=== PATIENT | female | born 1975 | race Caucasian/White ===

== ENCOUNTER → 2016-12-24 | Outpatient (CLI) | payer BC ==
[2016-12-24 11:30] LABS: CH 29.5; CHCM 31.5; HCT 40.4 % (34.0-46.0); HDW 2.19; HGB 12.2 gm/dL (11.4-16.0); MCH 28.4 pg (25.0-35.0); MCHC 30.1 g/dL (31.0-37.0); MCV 94.3 fL (80.0-100.0); RBC 4.29 m/uL (3.80-5.40); RDW 14.4 % (11.5-15.5); WBC 6.4 k/uL (3.8-10.6)
[2016-12-24 11:41] LABS: ALT 25 U/L (9-52); AST 29 U/L (14-36); Alkaline Phosphatase 53 U/L (38-126); Anion Gap 9 mmol/L; Bilirubin, Delta 0.2 mg/dL (0.0-0.2); Blood Urea Nitrogen 12 mg/dL (7-17); Calcium 9.4 mg/dL (8.4-10.2); Carbon Dioxide 27 mmol/L (22-30); Chloride 104 mmol/L (98-107); Glucose 93 mg/dL (74-99); Non-African American GFR(MDRD) >60 (>60 ml/min/1.73 sqM); Sodium 140 mmol/L (137-145); Total Bilirubin 0.4 mg/dL (0.2-1.3); Total Protein 7.4 g/dL (6.3-8.2)
[2016-12-24 12:08] LABS: INR 1.1 (<1.2); Prothrombin Time 10.7 sec (9.0-12.0)
== END | disposition home or self-care (01) ==
LOC: LABWHC1 11:11
PROVIDERS: ATTEND Internal Medicine
DX: Q79.2 Exomphalos (principal); R18.8 Other ascites; R16.0 Hepatomegaly, not elsewhere classified
CPT/HCPCS: 36415; 80048; 80076; 85027; 85610

== ENCOUNTER → 2017-10-01 | Outpatient (CLI) | payer BC ==
--- NOTE | 2017-10-01 14:10 | MM ---
Reason for exam: screening (asymptomatic). Baseline mammogram. History: Implants in both breasts, 2013. Took hormonal contraceptives beginning at age 21. Physical Findings: Nurse did not find any significant physical abnormalities on exam. MG Screening Mammo Implant/CAD Bilateral CC and MLO view(s) were taken. The breast tissue is extremely dense which could obscure a lesion on mammography. Finding: There are typically benign punctate, diffuse/scattered calcifications in both breasts. Scattered calcifications with no suspicious groups. No suspicious abnormality in the left breast. Right medial middle depth asymmetry. These results were verbally communicated with the patient and result sheet given to the patient on 10/01/17. ASSESSMENT: Incomplete: need additional imaging evaluation, BI-RAD 0 RECOMMENDATION: Special view mammogram of the right breast. If lesion persists on supplemental views, image directed ultrasound is recommended. [facility] will attempt to contact patient to return for supplemental views and ultrasound if indicated.
--- NOTE | 2017-10-01 14:13 | MM ---
Reason for exam: additional evaluation requested from abnormal screening. History: Implants in both breasts, 2013. Took hormonal contraceptives beginning at age 21. Physical Findings: Breast exam preformed at baseline screening. MG 3D Work Up W/Cad W/Imp RT Spot compression CC and ML view(s) were taken of the right breast. The breast tissue is extremely dense which could obscure a lesion on mammography. Finding: There are typically benign diffuse/scattered calcifications bilaterally. Scattered calcifications with no suspicious groups. The previously seen medial middle depth right asymmetry resolves on spot compression and lateral view and appears of fibroglandular tissue. These results were verbally communicated with the patient and result sheet given to the patient on 10/01/17. ASSESSMENT: Benign, BI-RAD 2 RECOMMENDATION: Return to routine screening mammogram schedule for both breasts.
== END | disposition home or self-care (01) ==
LOC: RADMAMWWP 07:03
PROVIDERS: ATTEND Obstetrics & Gynecology Obstetrics
DX: Z12.31 Encounter for screening mammogram for malignant neoplasm of breast (principal); R92.8 Other abnormal and inconclusive findings on diagnostic imaging of breast
CPT/HCPCS: 77061; 77065; 77067

== ENCOUNTER → 2018-11-16 | Outpatient (CLI) | payer BC ==
--- NOTE | 2018-11-18 08:54 | MM ---
Reason for exam: screening (asymptomatic). Last mammogram was performed 1 year and 1 month ago. History: Implants in both breasts, 2013. Took hormonal contraceptives beginning at age 21. Physical Findings: A clinical breast exam by your physician is recommended on an annual basis and results should be correlated with mammographic findings. MG Screening Mammo Implant/CAD Bilateral CC, MLO, and ID view(s) were taken. Prior study comparison: October 01, 2017, right breast MG work up mamm w CAD RT. October 01, 2017, bilateral MG screening mammo implant/CAD. The breast tissue is heterogeneously dense. This may lower the sensitivity of mammography. Retropectoral silicone implants. Bilateral diffuse punctate calcifications. No significant changes when compared with prior studies. ASSESSMENT: Benign, BI-RAD 2 RECOMMENDATION: Routine screening mammogram of both breasts in 1 year.
== END | disposition home or self-care (01) ==
LOC: RADMAMWWP 15:52
PROVIDERS: ATTEND Obstetrics & Gynecology Obstetrics
DX: Z12.31 Encounter for screening mammogram for malignant neoplasm of breast (principal); Z98.82 Breast implant status
CPT/HCPCS: 77067

== ENCOUNTER → 2020-01-17 | Outpatient (CLI) | payer BC | END | disposition home or self-care (01) | LOC: LABWHC1 14:08 | PROVIDERS: ATTEND Family Medicine | DX: R79.1 Abnormal coagulation profile (principal) | CPT/HCPCS: 36415; 85379 ==

== ENCOUNTER → 2020-01-24 | Outpatient (CLI) | payer BC ==
--- NOTE | 2020-01-24 16:56 | US ---
EXAMINATION TYPE: US transvaginal DATE OF EXAM: 01/24/2020 COMPARISON: NONE CLINICAL HISTORY: N92.1 Excessive and frequent menstruation with irr. Patient states she has unexplained ascites and has for 7 years. TECHNIQUE: Transvaginal (TV). Patient unable to well fill bladder Date of LMP: Patient has been spotting for 3 weeks. She is on control pills. EXAM MEASUREMENTS: Uterus: 8.1 x 4.4 x 5.5 cm Endometrial Stripe: 0.3 cm Right Ovary: 2.0 x 1.3 x 1.3cm Left Ovary: 2.3 x 1.5 X 1.5 cm 1. Uterus: Anteverted, heterogeneous 2. Endometrium: wnl 3. Right Ovary: wnl 4. Left Ovary: wnl 5. Bilateral Adnexa: free fluid 6. Posterior cul-de-sac: free fluid IMPRESSION: There is mild to moderate free fluid in the pelvis. No adnexal mass. Normal uterus.
== END | disposition home or self-care (01) ==
LOC: RADUSWWP 16:11
PROVIDERS: ATTEND Family Medicine
DX: R18.8 Other ascites (principal); N92.1 Excessive and frequent menstruation with irregular cycle
CPT/HCPCS: 76830

== ENCOUNTER → 2020-01-25 | Outpatient (CLI) | payer BC ==
[2020-01-26 09:55] LABS: HLA B27 NEGATIVE
--- NOTE | 2020-01-26 10:47 | ECHOF ---
Referral Reason:R00.2 Palpitations MEASUREMENTS -------- HEIGHT: 170.2 cm WEIGHT: 61.2 kg BP: IVSd: 0.8 cm (0.6 - 1.1) LVIDd: 3.6 cm (3.9 - 5.3) LVPWd: 0.7 cm (0.6 - 1.1) EDV(Teich): 54 ml IVSs: 1.3 cm LVIDs: 2.1 cm LVPWs: 1.3 cm %IVS Thck: 54 % ESV(Teich): 15 ml EF(Teich): 73 % %FS: 41 % SV(Teich): 40 ml RVIDd: 3.2 cm (< 3.3) IVC: 12.68 mm LALs A4C: 3.4 cm LAAs A4C: 9.8 cm LAESV A-L A4C: 24 ml LAESV MOD A4C: 21 ml LALs A2C: 4.7 cm LAAs A2C: 13.2 cm LAESV A-L A2C: 32 ml LAESV MOD A2C: 30 ml LAESV(A-L): 33 ml LAESV Index (A-L): 19.02 ml/m Ao Diam: 2.3 cm (2.0 - 3.7) LA Diam: 2.6 cm (2.7 - 3.8) AV Cusp: 1.9 cm (1.5 - 2.6) EPSS: 0.2 cm MV E Vidal: 0.98 m/s MV DecT: 154 ms MV Dec [place]: 6.4 m/s MV A Vidal: 0.78 m/s MV E/A Ratio: 1.26 MV PHT: 45 ms MR Vmax: 1.36 m/s MR maxP.42 mmHg AV Vmax: 1.18 m/s AV maxP.57 mmHg TR Vmax: 1.60 m/s TR maxP.28 mmHg RAP: 5.00 mmHg RVSP: 15.28 mmHg MV EF SLOPE: 91.42 mm/s (70 - 150) MV EXCURSION: 14.27 mm (> 18.000) FINDINGS -------- This was a technically good study. The left ventricular size is normal. Left ventricular wall thickness is normal. Overall left vent ricular systolic function is normal with, an EF between 55 - 60 %. The diastolic filling pattern is normal for the age of the patient 7.88. The right ventricle is normal in size. The left atrial size is normal. The right atrial size is normal. The aortic valve is trileaflet and appears structurally normal. The mitral valve is normal. There is trace mitral regurgitation. The tricuspid valve appears structurally normal. Trace tricuspid regurgitation present. Right rush tricular systolic pressure is normal at < 35 mmHg. There is no pulmonic regurgitation present. The aortic root size is normal. Normal inferior vena cava with normal inspiratory collapse consistent with estimated right atrial pre ssure of 5 mmHg. There is no pericardial effusion. CONCLUSIONS -------- 1. The left ventricular size is normal. 2. Left ventricular wall thickness is normal. 3. Overall left ventricular systolic function is normal with, an EF between 55 - 60 %. 4. The diastolic filling pattern is normal for the age of the patient 7.88 5. There is trace mitral regurgitation. 6. Trace tricuspid regurgitation present. 7. There is no pulmonic regurgitation present. 8. There is no pericardial effusion. [employer]: Katlin Adams RDCS
== END | disposition home or self-care (01) ==
LOC: RADECHMAIN 11:48
PROVIDERS: ATTEND Family Medicine
DX: R00.2 Palpitations (principal)
CPT/HCPCS: 86812; 93306

== ENCOUNTER → 2021-08-30 | Outpatient (CLI) | payer BC ==
[2021-08-30 15:21] LABS: Basophils # (A) 0.02 X 10*3/uL (0.00-0.10); Basophils % (A) 0.3 %; Eosinophils # (A) 0.12 X 10*3/uL (0.04-0.35); Eosinophils % (A) 1.8 %; HCT 38.7 % (37.2-46.3); HGB 11.5 g/dL (12.0-15.0); Immature Grans, Automated 0.3 %; Lymphocytes # (A) 1.55 X 10*3/uL (0.90-5.00); Lymphocytes % (A) 23.3 %; MCH 26.5 pg (27.0-32.0); MCHC 29.7 g/dL (32.0-37.0); MCV 89.2 fL (80.0-97.0); Monocytes # (A) 0.59 X 10*3/uL (0.20-1.00); Monocytes % (A) 8.9 %; NRBC Per 100 WBC 0 /100 WBCS (0.0-0.0); Neutrophils # (A) 4.34 X 10*3/uL (1.80-7.70); Neutrophils % (A) 65.4 %; Platelet Count 343 X 10*3/uL (140-440); RBC 4.34 X 10*6/uL (4.10-5.20); RDW 14.6 % (11.5-14.5); WBC 6.64 X 10*3/uL (4.50-10.00)
[2021-08-30 16:35] LABS: ALT 20 U/L (8-44); AST 20 U/L (13-35); African American GFR (CKD) 124.9 (60.0-200.0); Albumin/Globulin Ratio 1.78 (1.60-3.17); Alkaline Phosphatase 55 U/L (41-126); BUN/Creat Ratio 18.65 Ratio (12.00-20.00); Blood Urea Nitrogen 12.2 mg/dL (9.0-27.0); Calcium 9.2 mg/dL (8.7-10.3); Carbon Dioxide 24.3 mmol/L (20.0-27.5); Chloride 106 mmol/L (96-109); Globulin 2.3 g/dL (1.6-3.3); Glucose 90 mg/dL (70-110); LDL Cholesterol,Calculated 73.4 mg/dL (0.0-131.0); Non-African American GFR(CKD) 107.8 (60.0-200.0); Potassium 4.2 mmol/L (3.5-5.5); Sodium 139 mmol/L (135-145); Total Protein 6.3 g/dL (6.2-8.2); VLDL Calculation 13.62 mg/dL (5.00-40.00)
== END | disposition home or self-care (01) ==
LOC: LABWHC1 08:14
PROVIDERS: ATTEND Family Medicine
DX: Z00.00 Encounter for general adult medical examination without abnormal findings (principal)
CPT/HCPCS: 36415; 80053; 80061; 83036; 84443; 85025

== ENCOUNTER → 2021-09-04 | Outpatient (CLI) | payer BC ==
--- NOTE | 2021-09-05 14:58 | MM ---
Reason for Exam: Screening (asymptomatic). Last mammogram was performed 2 year(s) and 10 month(s) ago. Patient History: Menarche at age 17. First Full-Term at age 28. Hormonal Contraceptives, from age 21 until age 27. 2012, Bilateral Implants. Last menstrual period: 08/20/2021 Risk Values: Linda 5 year model risk: 0.8%. NCI Lifetime model risk: 9.8%. Prior Study Comparison: 10/01/2017 Bilateral Screening Mammogram, [facility]. 10/01/2017 Right Diagnostic Mammogram, [facility]. 11/16/2018 Bilateral Screening Mammogram, [facility]. Tissue Density: The breast tissue is heterogeneously dense. This may lower the sensitivity of mammography. Findings: Analyzed By CAD. Subpectoral bilateral breast implants are redemonstrated. A few scattered and regional benign appearing punctate calcifications bilaterally are again seen. There is new oval obscured by the millimeter mass in the right breast upper outer aspect slice 18 and MLO slice 1 8 approximately 4 cm distance from nipple.. Additional smaller obscured masses are present. There is a new 7 mm round circumscribed density subareolar medial aspect left breast on CC slice 19. Overall Assessment: Incomplete: need additional imaging evaluation, BI-RAD 0 Management: Diagnostic Breast Ultrasound of both breasts. Bilateral breast ultrasound to further evaluate. Areas of concern on background extremely dense tissue. Electronically signed and approved by: Angel Luis Laura M.D.
== END | disposition home or self-care (01) ==
LOC: RADMAMWWP 14:52
PROVIDERS: ATTEND Family Medicine
DX: Z12.31 Encounter for screening mammogram for malignant neoplasm of breast (principal)
CPT/HCPCS: 77063; 77067

== ENCOUNTER → 2021-09-14 | Outpatient (CLI) | payer BC ==
--- NOTE | 2021-09-14 09:17 | USB ---
Reason for Exam: Additional evaluation requested from abnormal screening. Patient History: Menarche at age 17. First Full-Term at age 28. Hormonal Contraceptives, from age 21 until age 27. 2012, Bilateral Implants. Risk Values: Linda 5 year model risk: 0.8%. NCI Lifetime model risk: 9.8%. Technique: Method: Whole Breast Handheld. Prior Study Comparison: 10/01/2017 Right Diagnostic Mammogram, [facility]. 11/16/2018 Bilateral Screening Mammogram, [facility]. 09/04/2021 Bilateral MG 3D screen mammo imp/cad., [facility]. Findings: The whole breast of both breasts, the axilla of both breasts and the retroareolar of both breasts were scanned. Whole bilateral breast ultrasound including evaluation of the subareolar and axillary regions. Right breast at 12:00 position shows 11 x 5 x 10 mm oval well-circumscribed lesion wider greater than tall and is hypoechoic to anechoic without posterior features and is avascular possible debris-filled cyst as patient has background dense tissue. Additional small thin-walled cysts at 11:00 position are present, largest measures up to 1.0 cm long axis within septa. Left breast shows oval well-circumscribed wider greater than tall 7 x 3 x 5 mm hypoechoic lesion with central hyperechogenic material favoring benign lymph node at 11:00 position. Partial visualization of bilateral breast implants. Overall Assessment: Probably benign, BI-RAD 3 Management: Diagnostic Breast Ultrasound of both breasts in 6 months. No convincing ultrasound evidence for malignancy. Short-term follow-up advised. Electronically signed and approved by: Angel Luis Laura M.D.
== END | disposition home or self-care (01) ==
LOC: RADUSWWP 08:21
PROVIDERS: ATTEND Family Medicine
DX: R92.8 Other abnormal and inconclusive findings on diagnostic imaging of breast (principal)

== ENCOUNTER 2022-02-25 06:54 | Day surgery (SDC) | payer BC ==
[2022-02-21 11:38] VITALS: BMI 21.9
[~2022-02-25 06:54] MED LIST: LACTATED RINGERS 1,000 ML IV SCH; LIDOCAINE 1% (10MG/ML) FOR IV START INTRADERMA PRN
[2022-02-25 07:46] VITALS: TEMP 97.1
[2022-02-25] MEDS ORDERED: PROPOFOL 10 MG/ML 20 ML VIAL IV ONE (08:10)
--- NOTE | 2022-02-25 08:24 | P.PCN ---
Date of Procedure: 02/25/22 Procedure(s) Performed: BRIEF HISTORY: Patient is a 46-year-old, pleasant, white female scheduled for an upper endoscopy as a part of evaluation of globus sensation of throat area and heartburn for the last 2 months duration. She denies any dysphagia to solids. PROCEDURE PERFORMED: Esophagogastroduodenoscopy with biopsy. PREOPERATIVE DIAGNOSIS: Globus sensation her throat area and heartburn. IV sedation per anesthesia. PROCEDURE: After informed consent was obtained, the patient was brought into the endoscopy unit. IV sedation was administered by Anesthesia under continuous monitoring. Initially the Olympus GIF-140 video endoscope was inserted into the mouth. Esophagus intubated without any difficulty. It was gradually advanced into the stomach and duodenum and carefully examined. The bulb and the second part of the duodenum appeared normal. The scope at this time was withdrawn to the stomach, adequately insufflated with air, and upon careful examination, mucosa of the antrum, had mild gastritis and biopsies were done from this area. The body, cardia and the fundus appeared normal. The scope was then withdrawn into the esophagus. Mall sliding type hiatal hernia noted. The GE junction was located at 39 cm from the incisors. The esophagus appeared normal. There were no erosions or ulcerations seen and biopsies were done from the distal esophagus and the patient tolerated the procedure well. IMPRESSION: 1. Normal-appearing esophagus with no evidence of esophagitis or esophageal stricture. 2. Small sliding type hiatal hernia.. RECOMMENDATIONS: The findings of this examination were discussed with the patient as well as her family. She was advised to follow with the biopsy results. Trial of Prilosec 20 mg daily for 6 weeks as the symptoms are suggestive of gastroesophageal reflux disease..
[2022-02-25 08:50] VITALS: BP 130/80; PULSE 54; RESP 16
== END 2022-02-25 08:57 | disposition home or self-care (01) ==
LOC: ORWHC2ENDO 06:54
PROVIDERS: ATTEND Internal Medicine Gastroenterology
DX: K29.50 Unspecified chronic gastritis without bleeding (principal); K21.00 Gastro-esophageal reflux disease with esophagitis, without bleeding; K44.9 Diaphragmatic hernia without obstruction or gangrene; F45.8 Other somatoform disorders
CPT/HCPCS: 81025; 43239; J2704

== ENCOUNTER 2023-05-15 10:38 | Observation (INO) | payer BC ==
--- NOTE | 2023-05-15 11:06 | ED ---
Chest Pain HPI - General Chief Complaint: Chest Pain Stated Complaint: AFIB Time Seen by Provider: 05/15/23 10:45 Source: EMS Mode of arrival: EMS Limitations: no limitations - Related Data Home Medications Medication Instructions Recorded Confirmed No Known Home Medications 02/21/22 05/15/23 Allergies Allergy/AdvReac Type Severity Reaction Status Date / Time No Known Allergies Allergy Verified 05/15/23 11:53 Review of Systems ROS Statement: Those systems with pertinent positive or pertinent negative responses have been documented in the HPI. ROS Other: All systems not noted in ROS Statement are negative. Past Medical History Additional Past Medical History / Comment(s): CONSTANTLY FEELS LIKE SOMETHING IS STRUCK IN THROAT History of Any Multi-Drug Resistant Organisms: None Reported Past Surgical History: Breast Surgery, Section Additional Past Surgical History / Comment(s): EXP. LAP. C-SEC X 2. BREAST IMPLANTS Past Anesthesia/Blood Transfusion Reactions: Postoperative Nausea & Vomiting (PONV) Past Psychological History: No Psychological Hx Reported Smoking Status: Never smoker Past Alcohol Use History: Occasional Past Drug Use History: None Reported - Past Family History Father Family Medical History: Cancer General Exam Limitations: no limitations Course Vital Signs 05/15/23 10:40 Temperature 97.9 F Pulse Rate 82 Respiratory 18 Rate Blood Pressure 161/95 O2 Sat by Pulse 100 Oximetry Chest Pain MDM - MDM Was pt. sent in by a medical professional or institution (JERRI Clark, BRIQU[employer]TE MACHINE OPERATOR HELPER, urgent care, hospital, or prison...) When possible be specific @ -[No] Did you speak to anyone other than the patient for history (EMS, parent, family, police, friend...)? What history was obtained from this source @ -[No] Did you review nursing and triage notes (agree or disagree)? Why? @ -[I reviewed and agree with nursing and triage notes] Were old charts reviewed (outside hosp., previous admission, EMS record, old EKG, old radiological studies, urgent care reports/EKG's, prison records)? Report findings @ -[No old charts were reviewed] Differential Diagnosis (chest pain, altered mental status, abdominal pain women, abdominal pain men, vaginal bleeding, weakness, fever, dyspnea, syncope, headache, dizziness, GI bleed, back pain, seizure, CVA, palpatations, mental health, musculoskeletal)? @ -[not applicable] EKG interpreted by me (3pts min.). @ -Yes and demonstrates sinus rhythm with a rate of 87. UT interval 154. QRS 89. QTc of 395. No acute ST segment elevation. Inverted T waves with ST depression V1 V2 X-rays interpreted by me (1pt min.). @ -[None done] CT interpreted by me (1pt min.). @ -[None done] U/S interpreted by me (1pt. min.). @ -[None done] What testing was considered but not performed or refused? (CT, X-rays, U/S, labs)? Why? @ -[None] What meds were considered but not given or refused? Why? @ -[None] Did you discuss the management of the patient with other professionals (professionals i.e. , PA, BRIQUETTE MACHINE OPERATOR HELPER, lab, RT, psych nurse, social work professor, kids club attendant, teacher, peace officer, case resource manager)? Give summary @ -[No] Was smoking cessation discussed for >3mins.? @ -[No] Was critical care preformed (if so, how long)? @ -[No] Were there social determinants of health that impacted care today? How? (Homelessness, low income, unemployed, alcoholism, drug addiction, transportation, low edu. Level, literacy, decrease access to med. care, shelter, rehab)? @ -[No] Was there de-escalation of care discussed even if they declined (Discuss DNR or withdrawal of care, Hospice)? DNR status @ -[No] What co-morbidities impacted this encounter? (DM, HTN, Smoking, COPD, CAD, Cancer, CVA, ARF, Chemo, Hep., AIDS, mental health diagnosis, sleep apnea, morbid obesity)? @ -[None] Was patient admitted / discharged? Hospital course, mention meds given and route, prescriptions, significant lab abnormalities, going to OR and other pertinent info. @ -[hospital course] Undiagnosed new problem with uncertain prognosis? @ -[No] Drug Therapy requiring intensive monitoring for toxicity (Heparin, Nitro, Insulin, Cardizem)? @ -[No] Were any procedures done? @ -[No] Diagnosis/symptom? @ -[default] Acute, or Chronic, or Acute on Chronic? @ -[default] Uncomplicated (without systemic symptoms) or Complicated (systemic symptoms)? @ -[default] Side effects of treatment? @ -[No] Exacerbation, Progression, or Severe Exacerbation? @ -[No] Poses a threat to life or bodily function? How? (Chest pain, [place], NV, pneumonia, PE, COPD, DKA, ARF, appy, cholecystitis, CVA, Diverticulitis, Homicidal, Suicidal, threat to staff... and all critical care pts) @ -[No] Disposition Clinical Impression: SVT (supraventricular tachycardia), Abnormal EKG, Chest pain, Hypomagnesemia Disposition: ADMITTED IP TO THIS [facility] Condition: Stable Is patient prescribed a controlled substance at d/c from ED?: No Referrals: Leandro Merlos MD [Primary Care Provider] - 1-2 days Time of Disposition: 14:18 Decision to Admit Reason: Admit from EC Decision Date: 05/15/23 Decision Time: 14:18
[2023-05-15 11:07] LABS: Basophils % (A) 0 %; Eosinophils # (A) 0.1 k/uL (0-0.7); Eosinophils % (A) 1 %; HCT 42.6 % (34.0-46.0); HGB 13.8 gm/dL (11.4-16.0); Lymphocytes # (A) 1.5 k/uL (1.0-4.8); Lymphocytes % (A) 19 %; MCH 29.3 pg (25.0-35.0); MCHC 32.3 g/dL (31.0-37.0); MCV 90.8 fL (80.0-100.0); Monocytes # (A) 0.4 k/uL (0-1.0); Monocytes % (A) 4 %; Neutrophils # (A) 5.9 k/uL (1.3-7.7); Neutrophils % (A) 74 %; Platelet Count 319 k/uL (150-450); RDW 13.8 % (11.5-15.5)
[2023-05-15 11:22] LABS: INR 1.1 (<1.2); Prothrombin Time 11.4 sec (10.0-12.5)
[2023-05-15 11:28] LABS: ALT 20 U/L (4-34); African American GFR (CKD) >90 (>60 ml/min/1.73 sqM); Albumin 4.4 g/dL (3.5-5.0); Anion Gap 11 mmol/L; Blood Urea Nitrogen 17 mg/dL (7-17); Calcium 9.6 mg/dL (8.4-10.2); Carbon Dioxide 19 mmol/L (22-30); Chloride 105 mmol/L (98-107); Glucose 116 mg/dL (74-99); Non-African American GFR(CKD) >90 (>60 ml/min/1.73 sqM); Sodium 135 mmol/L (137-145); Total Protein 7.4 g/dL (6.3-8.2)
[2023-05-15 11:32] LABS: AST 39 U/L (14-36); Magnesium 1.5 mg/dL (1.6-2.3); Potassium 4.5 mmol/L (3.5-5.1)
[2023-05-15 11:33] LABS: Alkaline Phosphatase 64 U/L (38-126)
[2023-05-15 11:40] LABS: Partial Thromboplastin Time 21.7 sec (22.0-30.0)
--- NOTE | 2023-05-15 11:46 | XR ---
EXAMINATION TYPE: XR chest 2V DATE OF EXAM: 05/15/2023 11:08 AM CLINICAL INDICATION:Female, 48 years old with history of dysrhythmia; PHH COMPARISON: None TECHNIQUE: XR chest 2V Frontal and lateral views of the chest. FINDINGS: Lungs/Pleura: There is no evidence of pleural effusion, focal consolidation, or pneumothorax. Pulmonary vascularity: Unremarkable. Heart/mediastinum: Cardiomediastinal silhouette is unremarkable. Musculoskeletal: No acute osseous pathology. IMPRESSION: No acute cardiopulmonary disease/process.
[2023-05-15] MEDS: MAGNESIUM SULFATE-D5W PMX 1 GM in DEXTROSE/WATER 1 100ML.BAG IVPB ONE (11:59)
[2023-05-15] MEDS ORDERED: NALOXONE 0.4 MG/ML 1 ML VIAL IV PRN (14:18)
--- NOTE | 2023-05-15 16:09 | P.HPIM ---
History of Present Illness H&P Date: 05/15/23 48 year old F with PMH of palpitations presents to the ED for palpitations. She reports a few episodes in the past that usually lasts a couple minutes and resolve spontaneously. This time, her palpitations lasted for about 30 minutes. Her palpitations are associated with lightheadedness and bilateral arm numbness. This prompted her to call EMS. She denies any external stressors. She is a nonsmoker. No illicit substance abuse. She seldomly drinks alcohol. In the ED, she underwent extensive evaluation. BP 161/95, HR 82, RR 18, T 90 7.9F, 100% on RA. CBC unremarkable. Coag panel showed APTT of 21.7. CMP sodium 135, bicarb 19, creatinine 0.49, glucose 116, AST 39 and magnesium 1.5. Troponin less than 0.012. TSH 1.69. Chest x-ray unremarkable. EKG showed sinus rhythm. Patient is admitted for cardiology evaluation. I was able to review the rhythm strip from EMS which seems to show SVT. General: non toxic, no distress, appears at stated age Derm: warm, dry Head: atraumatic, normocephalic, symmetric Eyes: EOMI, no lid lag, anicteric sclera Mouth: no lip lesion, mucus membranes moist Cardiovascular: S1S2 normal, no murmur Lungs: CTA bilateral, no rhonchi, no rales , no accessory muscle use Ext: no gross muscle atrophy, no edema, no contractures Neuro: no focal neuro deficits Psych: Alert, oriented, appropriate affect Based on my assessment of this patient, this patient meets a high complexity level of care. Patient has an acute diagnosis of SVT which poses a threat to life or bodily function. SVT: TSH within normal limits. Obtain Echocardiogram. Consult cardiology. Telemetry monitoring. Hypomagnesemia: 1g Mag sulfate IV ordered. Elevated AST: Outpatient workup. Mildly elevated. Metabolic acidosis: Likely due to above. Continue NS at 75 cc/hr. CODE STATUS: FULL CODE DVT Prophylaxis: Lovenox SQ GI Prophylaxis: Designated medical POA if patient is not able to make medical decisions for themselves: I have reviewed the following international travel consultant notes: ED note. I have reviewed the results of the following tests: As above. I have ordered the following tests: As above. I have discussed the care of this patient with the following independent histor tosha: I have independently interpreted the following test below: EKG. Rhythm strip from EMS. I have discussed the management of this patient with the following physician: Past Medical History Additional Past Medical History / Comment(s): CONSTANTLY FEELS LIKE SOMETHING IS STRUCK IN THROAT History of Any Multi-Drug Resistant Organisms: None Reported Past Surgical History: Breast Surgery, Section Additional Past Surgical History / Comment(s): EXP. LAP. C-SEC X 2. BREAST IMPLANTS Past Anesthesia/Blood Transfusion Reactions: Postoperative Nausea & Vomiting (PONV) Past Psychological History: No Psychological Hx Reported Smoking Status: Never smoker Past Alcohol Use History: Occasional Past Drug Use History: None Reported - Past Family History Father Family Medical History: Cancer Medications and Allergies Home Medications Medication Instructions Recorded Confirmed Type No Known Home Medications 02/21/22 05/15/23 History Allergies Allergy/AdvReac Type Severity Reaction Status Date / Time No Known Allergies Allergy Verified 05/15/23 11:53 Physical Exam Vitals: Vital Signs Temp Pulse Resp BP Pulse Ox 05/15/23 15:06 96 18 132/74 97 05/15/23 10:40 97.9 F 82 18 161/95 100 Intake and Output 05/15/23 05/15/23 05/15/23 06:59 14:59 22:59 Other: Weight 63.503 kg Results CBC & Chem 7: 05/15/23 10:57 05/15/23 10:57 Labs: Abnormal Lab Results - Last 24 Hours (Table) 05/15/23 05/15/23 Range/Units 10:57 10:57 APTT 21.7 L (22.0-30.0) sec Sodium 135 L (137-145) mmol/L Carbon Dioxide 19 L (22-30) mmol/L Creatinine 0.49 L (0.52-1.04) mg/dL Glucose 116 H (74-99) mg/dL Magnesium 1.5 L (1.6-2.3) mg/dL AST 39 H (14-36) U/L
[2023-05-15] MEDS: SODIUM CHLORIDE 0.9% 1,000 ML IV SCH (20:19)
[2023-05-16 01:14] VITALS: RESP 16
[2023-05-16] MEDS ORDERED: HEPARIN SODIUM,PORCINE 10,000 UNIT in SODIUM CHLORIDE 0.9% 1,000 ML IRRIGATION PRN (07:00)
[2023-05-16] MEDS ORDERED: HEPARIN SODIUM,PORCINE (1 ML) 2,500 UNIT in SODIUM CHLORIDE 0.9% 250 ML IRRIGATION PRN (07:00)
[2023-05-16] MEDS ORDERED: NITROGLYCERIN SL TABS 0.4 MG TAB SUBLINGUAL PRN (08:08)
[2023-05-16] MEDS ORDERED: ALPRAZolam 0.25 MG TAB PO PRN (08:08)
[2023-05-16] MEDS ORDERED: ALPRAZolam 0.5 MG TAB PO PRN (08:08)
[2023-05-16] MEDS: ASPIRIN 325 MG TAB PO STA (08:58)
[2023-05-16] MEDS: ENOXAPARIN 40 MG/0.4 ML SYRINGE SQ SCH (08:58)
[2023-05-16] MEDS: ATORVASTATIN 80 MG TAB PO STA (08:58)
[2023-05-16 09:11] VITALS: PULSE 65
--- NOTE | 2023-05-16 10:25 | P.CRDCN ---
History of Present Illness Consult date: 05/16/23 Consult reason: chest pain (and SVT) History of present illness: History of present illness: This is a 48-year-old female with no previous cardiac history and does not follow with a art education professor. We have been asked to evaluate for chest pain and SVT. 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 She also felt that both arms were weak. She sat down and drink some water and the symptoms lasted for about half hour. She has had occur a couple times in t he past but usually is very brief. She felt fatigued following this. She is normally quite active. EMS captured what appears to be in SVT with aberrancy. patient normally does not have any dizziness no syncopal episodes. She normally sleeps on 2 pillows. She is never had any cardiac workup in the past. She has occasional alcohol use. 1 cup of coffee per day. No tobacco or illicit drug use. No fever or chills. No nausea or vomiting no abdominal pain or bloating. No history of CVA or seizures. Discussed with patient the option of cardiac catheterization to rule out coronary artery disease due to underlying EKG changes and abnormal troponins. Also discussed with patient recommendations for follow-up in the office and evaluation with Dr. Archibald for SVT and possible EP study and ablation. Patient is agreeable to move forward today with cardiac catheterization. EKG sinus rhythm with T wave inversions in V1 and V2 Chest x-ray: No acute process. CBC INR within normal limits. Sodium 135, potassium 4.5, BUN 17 creatinine 0.49. Blood sugar 116. Magnesium 1.5, AST 39 otherwise liver function test are normal. Troponins 0.012, 0.087, 0.096. TSH 1.69. Home cardiac medications: None Review Of Systems: At the time of my exam: CONSTITUTIONAL: Denies fever or chills. HEENT: Denies blurred vision, vision changes, or eye pain. Denies hemoptysis CARDIOVASCULAR: Denies chest pain. Denies orthopnea. Denies PND. Denies palpitations RESPIRATORY: Denies shortness of breath. GASTROINTESTINAL: Denies abdominal pain. Denies nausea or vomiting. HEMATOLOGIC: Denies bleeding disorders. GENITOURINARY: Denies any blood in urine. SKIN: Denies pruitis. Denies rash. Physical examination: Gen: This is a 48-year-old female in no acute distress VS: reviewed HEENT: Head is atraumatic, normocephalic. Pupils equal, round. Sclerae is anicteric. NECK: Supple. No JVD. LUNGS: Clear to auscultation. No wheezes or rhonchi. No intercostal retractions. HEART: Regular rate and rhythm. No murmur. ABDOMEN: Soft No tenderness. EXTREMITIES: No pedal edema. No calf tenderness. NEUROLOGICAL: Patient is awake, alert and oriented x3. Assessment: Elevated troponins possibly due to SVT, rule out coronary artery disease Episode of chest pain most likely secondary to SVT, rule out coronary artery disease SVT nonsustained Plan: Patient will be scheduled for cardiac catheterization today with Dr. León Obtain 2-D echocardiogram and Doppler study to assess cardiac structure and function If cardiac catheterization is unremarkable, patient is cleared for discharge and will follow-up in the office with Dr. León in 1 week. Thank you kindly for this consultation. Nurse practitioner note has been reviewed, I agree with documented findings and plan of care. Patient was seen and examined. Past Medical History Additional Past Medical History / Comment(s): CONSTANTLY FEELS LIKE SOMETHING IS STRUCK IN THROAT History of Any Multi-Drug Resistant Organisms: None Reported Past Surgical History: Breast Surgery, Section Additional Past Surgical History / Comment(s): EXP. LAP. C-SEC X2. BREAST IMPLANTS Past Anesthesia/Blood Transfusion Reactions: No Reported Reaction, Postoperative Nausea & Vomiting (PONV) Past Psychological History: No Psychological Hx Reported Smoking Status: Never smoker Past Alcohol Use History: Occasional Past Drug Use History: None Reported - Past Family History Father Family Medical History: Cancer Medications and Allergies Home Medications Medication Instructions Recorded Confirmed Type No Known Home Medications 02/21/22 05/15/23 History Allergies Allergy/AdvReac Type Severity Reaction Status Date / Time No Known Allergies Allergy Verified 05/15/23 11:53 Physical Exam Vitals: Vital Signs Temp Pulse Pulse Resp BP BP Pulse Ox 05/16/23 04:00 68 16 110/72 98 05/16/23 00:00 98.1 F 61 16 113/67 99 05/15/23 20:19 71 18 136/78 98 05/15/23 20:00 98.2 F 63 18 152/89 97 05/15/23 19:50 67 16 132/74 97 05/15/23 19:40 68 23 132/74 97 05/15/23 19:30 67 16 132/74 96 05/15/23 19:20 70 20 132/74 96 05/15/23 19:10 132/74 05/15/23 19:00 75 33 H 132/74 97 05/15/23 18:50 73 22 132/74 97 05/15/23 18:40 73 17 132/74 96 05/15/23 18:30 70 19 132/74 96 05/15/23 18:20 77 34 H 132/74 96 05/15/23 18:10 70 49 H 132/74 98 05/15/23 18:00 74 72 H 132/74 96 05/15/23 17:50 80 32 H 132/74 96 05/15/23 17:40 72 19 132/74 96 05/15/23 17:30 70 18 132/74 96 05/15/23 17:20 71 18 132/74 96 05/15/23 17:10 73 19 132/74 96 05/15/23 17:00 73 19 132/74 98 05/15/23 16:50 78 13 132/74 98 05/15/23 16:40 85 22 132/74 97 05/15/23 16:30 81 20 132/74 97 05/15/23 16:20 87 24 132/74 97 05/15/23 16:10 76 15 132/74 100 05/15/23 16:00 83 20 132/74 98 05/15/23 15:50 84 22 132/74 98 05/15/23 15:40 92 16 132/74 99 05/15/23 15:30 93 19 132/74 99 05/15/23 15:20 101 H 11 L 132/74 99 05/15/23 15:10 102 H 14 132/74 97 05/15/23 15:06 96 18 132/74 97 05/15/23 13:50 82 26 H 05/15/23 13:40 78 18 05/15/23 13:30 68 13 05/15/23 13:20 78 20 05/15/23 13:10 79 30 H 05/15/23 13:00 78 18 05/15/23 12:50 71 18 05/15/23 12:40 65 10 L 05/15/23 12:30 64 13 149/93 98 05/15/23 12:20 75 17 149/93 98 05/15/23 12:10 78 22 145/80 98 05/15/23 12:00 70 19 149/93 98 05/15/23 11:50 92 16 140/87 97 05/15/23 11:40 84 16 149/93 98 05/15/23 10:40 97.9 F 82 18 161/95 100 Intake and Output 05/15/23 05/16/23 05/16/23 22:59 06:59 14:59 Intake Total 250 Balance 250 Intake: IV 10 Invasive Line 1 10 Oral 240 Other: Voiding Method Toilet Toilet # Voids 1 1 Weight 63.503 kg Results 05/15/23 10:57 05/15/23 10:57 Cardiac Enzymes 05/15/23 05/15/23 05/15/23 Range/Units 10:57 10:57 15:32 AST 39 H (14-36) U/L Troponin I <0.012 0.087 H* (0.000-0.034) ng/mL 05/15/23 Range/Units 18:01 AST (14-36) U/L Troponin I 0.096 H* (0.000-0.034) ng/mL Coagulation 05/15/23 Range/Units 10:57 PT 11.4 (10.0-12.5) sec APTT 21.7 L (22.0-30.0) sec CBC 05/15/23 Range/Units 10:57 WBC 8.0 (3.8-10.6) k/uL RBC 4.70 (3.80-5.40) m/uL Hgb 13.8 (11.4-16.0) gm/dL Hct 42.6 (34.0-46.0) % Plt Count 319 (150-450) k/uL Comprehensive Metabolic Panel 05/15/23 Range/Units 10:57 Sodium 135 L (137-145) mmol/L Potassium 4.5 (3.5-5.1) mmol/L Chloride 105 (98-107) mmol/L Carbon Dioxide 19 L (22-30) mmol/L BUN 17 (7-17) mg/dL Creatinine 0.49 L (0.52-1.04) mg/dL Glucose 116 H (74-99) mg/dL Calcium 9.6 (8.4-10.2) mg/dL AST 39 H (14-36) U/L ALT 20 (4-34) U/L Alkaline Phosphatase 64 (38-126) U/L Total Protein 7.4 (6.3-8.2) g/dL Albumin 4.4 (3.5-5.0) g/dL Current Medications Generic Name Dose Route Start Last Admin Trade Name Freq PRN Reason Stop Dose Admin Enoxaparin Sodium 40 mg 05/16/23 09:00 Enoxaparin 40 Mg/0.4 Ml Syringe SQ DAILY [facility] Sodium Chloride 1,000 mls @ 75 mls/hr 05/15/23 14:30 05/16/23 04:47 Saline 0.9% IV Not Given .[id number] [facility] Naloxone HCl 0.2 mg 05/15/23 14:18 Naloxone 0.4 Mg/Ml 1 Ml Vial IV Q2M PRN Opioid Reversal Intake and Output 05/15/23 05/16/23 05/16/23 22:59 06:59 14:59 Intake Total 250 Balance 250 Intake: IV 10 Invasive Line 1 10 Oral 240 Other: Voiding Method Toilet Toilet # Voids 1 1 Weight 63.503 kg 05/15/23 10:57 05/15/23 10:57
[2023-05-16] MEDS ORDERED: LIDOCAINE 1% INJ 10MG/ML (20 ML MDV) ONE (10:34)
[2023-05-16] MEDS ORDERED: VERAPAMIL 2.5 MG/ML 2 ML AMP ONE (10:34)
[2023-05-16 10:55] LABS: Basophils % (A) 0 %; Eosinophils # (A) 0.1 k/uL (0-0.7); Eosinophils % (A) 1 %; HCT 41.6 % (34.0-46.0); HGB 13.4 gm/dL (11.4-16.0); Lymphocytes # (A) 1.3 k/uL (1.0-4.8); Lymphocytes % (A) 20 %; MCH 29.5 pg (25.0-35.0); MCHC 32.2 g/dL (31.0-37.0); MCV 91.8 fL (80.0-100.0); Mean Platelet Volume 7.6; Monocytes # (A) 0.4 k/uL (0-1.0); Monocytes % (A) 6 %; Neutrophils # (A) 4.9 k/uL (1.3-7.7); Neutrophils % (A) 72 %; Platelet Count 330 k/uL (150-450); RBC 4.53 m/uL (3.80-5.40); RDW 13.7 % (11.5-15.5); WBC 6.8 k/uL (3.8-10.6)
--- NOTE | 2023-05-16 11:01 | P.PN ---
Subjective Progress Note Date: 05/16/23 48 year old F with PMH of palpitations presents to the ED for palpitations. She reports a few episodes in the past that usually lasts a couple minutes and resolve spontaneously. This time, her palpitations lasted for about 30 minutes. Her palpitations are associated with lightheadedness and bilateral arm numbness. This prompted her to call EMS. She denies any external stressors. She is a nonsmoker. No illicit substance abuse. She seldomly drinks alcohol. In the ED, she underwent extensive evaluation. BP 161/95, HR 82, RR 18, T 90 7.9F, 100% on RA. CBC unremarkable. Coag panel showed APTT of 21.7. CMP sodium 135, bicarb 19, creatinine 0.49, glucose 116, AST 39 and magnesium 1.5. Troponin less than 0.012. TSH 1.69. Chest x-ray unremarkable. EKG showed sinus rhythm with TWI in V1 and V2. Patient is admitted for cardiology evaluation. I was able to review the rhythm strip from EMS which seems to show SVT. 05/15 Patient was seen and examined. Feeling well with no complaints. Troponin trending up 0.087 and 0.096. CBC unremarkable. Plans for cardiac cath. General: non toxic, no distress, appears at stated age Derm: warm, dry Head: atraumatic, normocephalic, symmetric Eyes: EOMI, no lid lag, anicteric sclera Mouth: no lip lesion, mucus membranes moist Cardiovascular: S1S2 normal, no murmur Lungs: CTA bilateral, no rhonchi, no rales , no accessory muscle use Ext: no gross muscle atrophy, no edema, no contractures Neuro: no focal neuro deficits Psych: Alert, oriented, appropriate affect Based on my assessment of this patient, this patient meets a high complexity level of care. Patient has an acute diagnosis of SVT which poses a threat to life or bodily function. SVT: TSH within normal limits. Obtain Echocardiogram. Consult cardiology. Telemetry monitoring. Troponin elevation: Likely demand ischemia. Rule out ACS. Plans for cardiac cath. Hypomagnesemia: 1g Mag sulfate IV ordered. Elevated AST: Outpatient workup. Mildly elevated. Metabolic acidosis: Likely due to above. Continue NS at 75 cc/hr. CODE STATUS: FULL CODE DVT Prophylaxis: Lovenox SQ GI Prophylaxis: Designated medical POA if patient is not able to make medical decisions for themselves: I have reviewed the following databases software consultant notes: Cardiology note. I have reviewed the results of the following tests: Troponin x 2. I have ordered the following tests: Echo and BMP pending. I have discussed the care of this patient with the following independent historian: I have independently interpreted the following test below: I have discussed the management of this patient with the following physician: Objective - Vital Signs Vital signs: Vital Signs Temp 98.4 F 05/16/23 08:00 Pulse 65 05/16/23 08:00 Resp 16 05/16/23 08:00 BP 145/95 05/16/23 08:00 Pulse Ox 97 05/16/23 08:00 FiO2 Intake & Output 05/15/23 05/16/23 05/16/23 18:59 06:59 18:59 Intake Total 250 Balance 250 Weight 63.503 kg 63.503 kg Intake: IV 10 Invasive Line 1 10 Oral 240 Other: Voiding Method Toilet # Voids 1 1 - Labs CBC & Chem 7: 05/16/23 10:13 05/15/23 10:57 Labs: Abnormal Lab Results - Last 24 Hours (Table) 05/15/23 05/15/23 05/15/23 Range/Units 10:57 10:57 15:32 APTT 21.7 L (22.0-30.0) sec Sodium 135 L (137-145) mmol/L Carbon Dioxide 19 L (22-30) mmol/L Creatinine 0.49 L (0.52-1.04) mg/dL Glucose 116 H (74-99) mg/dL Magnesium 1.5 L (1.6-2.3) mg/dL AST 39 H (14-36) U/L Troponin I 0.087 H* (0.000-0.034) ng/mL 05/15/23 Range/Units 18:01 APTT (22.0-30.0) sec Sodium (137-145) mmol/L Carbon Dioxide (22-30) mmol/L Creatinine (0.52-1.04) mg/dL Glucose (74-99) mg/dL Magnesium (1.6-2.3) mg/dL AST (14-36) U/L Troponin I 0.096 H* (0.000-0.034) ng/mL
[2023-05-16] MEDS ORDERED: fentaNYL (PF) 50 MCG/ML 2 ML AMP ONE (11:04)
[2023-05-16] MEDS ORDERED: HEPARIN SODIUM 1,000 UN/ML (10ML VL) ONE (11:04)
--- NOTE | 2023-05-16 11:09 | CA ---
Transthoracic Echo Report Name: Dee Dee Horner Age: 48 Gender: F : 1975 Exam Date: 05/15/2023 15:59 Exam Location: [facility] Ht (in): 67 Wt (lb): 140 Ordering Physician: Sury Steiner MD Attending/Referring Phys: Boiler Erector Michelle Diaz RDCS Procedure CPT: Indications: arrhythmia Cardiac Hx: Technical Quality: Contrast 1: Total Dose (mL): Contrast 2: Total Dose (mL): MEASUREMENTS (Male / Female) Normal Values 2D ECHO LV Diastolic Diameter PLAX 3.6 cm 4.2 - 5.9 / 3.9 - 5.3 cm LV Systolic Diameter PLAX 2.3 cm IVS Diastolic Thickness 0.8 cm 0.6 - 1.0 / 0.6 - 0.9 cm LVPW Diastolic Thickness 0.7 cm 0.6 - 1.0 / 0.6 - 0.9 cm LV Relative Wall Thickness 0.4 LVOT Diameter 2.0 cm Aortic Root Diameter 2.9 cm LA Systolic Diameter LX 2.0 cm 3.0 - 4.0 / 2.7 - 3.8 cm LA Volume 27.1 cm??? 18 - 58 / 22 - 52 cm??? LA Volume Index 15.6 cm???/m??? 16 - 28 cm???/m??? DOPPLER AV Peak Velocity 116.4 cm/s AV Peak Gradient 5.4 mmHg AV Mean Velocity 89.1 cm/s AV Mean Gradient 3.5 mmHg AV Velocity Time Integral 26.7 cm LVOT Peak Velocity 119.6 cm/s LVOT Peak Gradient 5.7 mmHg LVOT Velocity Time Integral 20.4 cm LVOT Stroke Volume 65.7 cm??? LVOT Stroke Volume Index 37.8 ml/m??? AV Area Cont Eq vti 2.5 cm??? AV Area Cont Eq pk 3.3 cm??? MV Area PHT 2.8 cm??? Mitral E Point Velocity 103.1 cm/s Mitral A Point Velocity 73.4 cm/s Mitral E to A Ratio 1.4 MV Deceleration Time 275.6 ms PV Peak Velocity 53.8 cm/s PV Peak Gradient 1.2 mmHg FINDINGS Left Ventricle Left ventricular ejection fraction is estimated at 55-60 %. Normal left ventricular systolic function with no obvious regional wall motion abnormalities. Right Ventricle Normal right ventricular size. Right ventricular systolic pressure within normal limits. Right Atrium Normal right atrial size. Left Atrium Normal left atrial size. Mitral Valve Trace mitral regurgitation. Aortic Valve Aortic valve not well visualized. Tricuspid Valve Trace tricuspid regurgitation. Pulmonic Valve No pulmonic regurgitation. Pericardium No pericardial effusion. Aorta Normal size aortic root. CONCLUSIONS Previous echo recorded on 01/25/20. Normal LV systolic function Poorly visualized aortic valve Mild mitral regurgitation Previewed by: Dr. Nader Lopez MD (Electronically Signed) Final Date: 16 May 2023 11:08
[2023-05-16 11:12] LABS: African American GFR (CKD) >90 (>60 ml/min/1.73 sqM); Anion Gap 4 mmol/L; Blood Urea Nitrogen 13 mg/dL (7-17); Calcium 9.4 mg/dL (8.4-10.2); Carbon Dioxide 24 mmol/L (22-30); Chloride 109 mmol/L (98-107); Glucose 87 mg/dL (74-99); Non-African American GFR(CKD) >90 (>60 ml/min/1.73 sqM); Potassium 4.3 mmol/L (3.5-5.1); Sodium 137 mmol/L (137-145)
[2023-05-16] MEDS: IV FLUID CONTINUATION 1,000 ML IV ONE (11:23)
[2023-05-16] MEDS: fentaNYL (PF) 50 MCG/1 ML VIAL IVP ONE (11:24)
[2023-05-16] MEDS: LIDOCAINE 1% INJ 10MG/ML (20 ML MDV) SQ ONE (11:26)
[2023-05-16] MEDS: VERAPAMIL SYRINGE (5 MG/10 ML) INTRAARTER ONE (11:29)
[2023-05-16] MEDS: HEPARIN SODIUM 1,000 UN/ML (10ML VL) IVP ONE (11:34)
[2023-05-16] MEDS: IOPAMIDOL-370 100ML BTL INJ ONE (11:40)
[2023-05-16] MEDS: MIDAZOLAM 2 MG/2 ML VIAL IVP ONE (11:40)
[2023-05-16] MEDS ORDERED: RX INFO: IV CONTRAST WAS GIVEN 1 EACH MISC MISCELLANE PRN (11:57)
--- NOTE | 2023-05-16 12:02 | P.CARDCATH ---
Date of Procedure: 05/16/23 Description of Procedure: Cardiac Catheterization: The patient is a 48-year-old female with no cardiac history who presented with symptoms of rapid heartbeat and chest discomfort. 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 She had mild troponin elevation. Recommendations were made regarding cardiac catheterization, the risks and the complications were discussed with the patient who is in full understanding and agreement. Procedure Description: Patient was brought to helper animal laboratory in fasting semi-sedated state after receiving Fentanyl and Benadryl achieiving moderate conscious sedated state. Using Xylocaine Anesthesia and modified Seldinger technique, a 6-Italian sheath was introduced in the right radial artery . Subsequently, selective coronary angiography was performed using a 5-Italian 3.5 bend Arnaldo catheter. Multiple views of the coronary artery including hemiaxial views were obtained. The 5 Italian pigtail catheter was used to cross the aortic valve and LVEDP was calculated. Following that, catheter and sheath were removed. Hemostasis was obtained with deployment of vascular band . There was no immediate complication. Patient was returned to room in stable condition. Of note, the patient received a total of 3500 units of intravenous heparin as well as intra-arterial verapamil. Findings: Left main: This is a short size vessel, bifurcating into LAD and left circum flex, left main has no obstructive disease LAD: This is a large size vessel, giving rise to a large proximal septal party planner the LAD and its branches have no obstructive disease Left circumflex: This is a large nondominant vessel giving rise to 3 obtuse marginal branch, the left circumflex and its branches have no obstructive disease RCA: This is a dominant vessel, moderate in caliber, bifurcating distally to PDA and PLV, the RCA and its branches have no obstructive disease Left Ventriculogram: Not performed Hemodynamics: There was no gradient across the aortic valve, LVEDP was 6-10 mmHg Conclusion: 1. No evidence of obstructive disease 2. Right dominance 3. Normal LVEDP Recommendations: I have recommended to continue medical therapy, the troponin elevation most likely secondary to the tachycardia and does not represent obstructive disease. Depending on the recurrence of the SVT patient will be evaluated as an outpatient for possible ablation. The findings and the recommendations were discussed with the patient and the family and they were in full understanding and agreement. Duration of sedation is 18 minutes.
[2023-05-16] MEDS: SODIUM CHLORIDE 0.9% 1,000 ML IV SCH (12:26)
[2023-05-16 13:45] VITALS: BP 114/75; TEMP 98.1
--- NOTE | 2023-05-16 14:30 | P.DS ---
Providers Date of admission: 05/15/23 14:29 Expected date of discharge: 05/16/23 Attending physician: Josey Weinberg DO Consults: 05/15/23 14:18 Consult Physician Urgent Consulting Provider: [facility] Consult Reason/Comments: chest pain, svt Do you want consulting provider notified?: Yes Primary care physician: [facility] Hospital Course: 48 year old F with PMH of palpitations presents to the ED for palpitations. She reports a few episodes in the past that usually lasts a couple minutes and resolve spontaneously. This time, her palpitations lasted for about 30 minutes. Her palpitations are associated with lightheadedness and bilateral arm numbness. This prompted her to call EMS. She denies any external stressors. She is a nonsmoker. No illicit substance abuse. She seldomly drinks alcohol. In the ED, she underwent extensive evaluation. BP 161/95, HR 82, RR 18, T 90 7.9F, 100% on RA. CBC unremarkable. Coag panel showed APTT of 21.7. CMP sodium 135, bicarb 19, creatinine 0.49, glucose 116, AST 39 and magnesium 1.5. Troponin less than 0.012. TSH 1.69. Chest x-ray unremarkable. EKG showed sinus rhythm with TWI in V1 and V2. Patient is admitted for cardiology evaluation. I was able to review the rhythm strip from EMS which seems to show SVT. 05/15 Patient was seen and examined. Feeling well with no complaints. Troponin trending up 0.087 and 0.096. CBC unremarkable. Plans for cardiac cath. Cardiac cath was negative. Echo showed normal LV systolic function with mild MR. Patient cleared by cardiology. Advised to follow up with Dr. León. General: non toxic, no distress, appears at stated age Derm: warm, dry Head: atraumatic, normocephalic, symmetric Eyes: EOMI, no lid lag, anicteric sclera Mouth: no lip lesion, mucus membranes moist Cardiovascular: S1S2 normal, no murmur Lungs: CTA bilateral, no rhonchi, no rales , no accessory muscle use Ext: no gross muscle atrophy, no edema, no contractures Neuro: no focal neuro deficits Psych: Alert, oriented, appropriate affect Discharge Diagnosis: SVT Troponin elevation Hypomagnesemia Elevated AST Metabolic acidosis This complex discharge took 35 minutes to complete. Patient Condition at Discharge: Stable Plan - Discharge Summary Discharge Rx Participant: Yes New Discharge Prescriptions: Continue No Known Home Medications Discharge Medication List No Known Home Medications 02/21/22 [History] Follow up Appointment(s)/Referral(s): Kisha León MD [STAFF PHYSICIAN] - 1 Week Leandro Merlos MD [Primary Care Provider] - 1-2 days Discharge Disposition: HOME SELF-CARE
== END 2023-05-16 15:56 | disposition home or self-care (01) ==
LOC: EC 10:38 → 6NMEDSUR 14:29 → 3SCARD 17:16
PROVIDERS: ADMIT Internal Medicine; ATTEND Internal Medicine
DX: I47.10 Supraventricular tachycardia, unspecified (principal); E83.42 Hypomagnesemia; E87.20 Acidosis, unspecified; F10.20 Alcohol dependence, uncomplicated; F17.200 Nicotine dependence, unspecified, uncomplicated; I10 Essential (primary) hypertension; I25.10 Atherosclerotic heart disease of native coronary artery without angina pectoris; R79.89 Other specified abnormal findings of blood chemistry
CPT/HCPCS: 96365; 96372 ×2; 36415; 93005; 93306; 80053; 80048; 84443; 83735; 84484; 85025 ×2; 85610; 85730; 71046; G0378 ×3; C1769 ×3; C1894; J2250; J2001; J1650; J1644; J3475; Q9967; J3010; 93458

== ENCOUNTER → 2023-09-05 | Outpatient (CLI) | payer BC ==
--- NOTE | 2023-09-10 13:07 | MM ---
Reason for Exam: Screening (asymptomatic). Last mammogram was performed 1 year(s) and 4 month(s) ago. Patient History: Menarche at age 17. First Full-Term at age 28. Premenopausal. Hormonal Contraceptives, from age 21 until age 27. 2013, Bilateral Implants. Last menstrual period: 09/02/2023 Risk Values: Linda 5 year model risk: 0.9%. NCI Lifetime model risk: 9.6%. Prior Study Comparison: 11/16/2018 Bilateral Screening Mammogram, [facility]. 09/04/2021 Bilateral MG 3D screen mammo imp/cad., [facility]. 05/14/2022 Bilateral MG 3D diag mammo imp w/cad JOLENE, [facility]. Tissue Density: There are scattered areas of fibroglandular density. Findings: Analyzed By CAD. Bilateral breast implants appear intact. Right breast: There is no suspicious group of microcalcifications or new suspicious mass. Left breast: There is no suspicious group of microcalcifications or new suspicious mass. Overall Assessment: Negative, BI-RAD 1 Management: Screening Mammogram of both breasts in [address] [facility] will attempt to contact patient to return for supplemental views and ultrasound if indicated. Patient should continue monthly self-breast exams. A clinical breast exam by your physician is recommended on an annual basis. This exam should not preclude additional follow-up of suspicious palpable abnormalities. Note on Linda scores and lifetime risk: 1. A Linda score greater than 3% is considered moderate risk. If this is the case, consider specialist referral to assess eligibility for a risk reducing agent. 2. If overall lifetime risk for the development of breast cancer is 20% or higher, the patient may qualify for future screening with alternating mammogram and breast MRI. Electronically signed and approved by: Juan Patel DO
== END | disposition home or self-care (01) ==
LOC: RADMAMWWP 15:30
PROVIDERS: ATTEND Family Medicine
DX: Z12.31 Encounter for screening mammogram for malignant neoplasm of breast (principal)
CPT/HCPCS: 77063; 77067

== ENCOUNTER → 2024-09-24 | Outpatient (CLI) | payer BC ==
--- NOTE | 2024-09-24 11:28 | MM ---
Reason for Exam: Hx of breast augmentation, asymptomatic. Last screening mammogram was performed 12 month(s) ago. Patient History: Menarche at age 17. First Full-Term at age 28. Premenopausal. Patient has history of breast feeding. Hormonal Contraceptives, from age 21 until age 27. 2013, Bilateral Implants. Risk Values: Linda 5 year model risk: 0.9%. NCI Lifetime model risk: 9.5%. Prior Study Comparison: 09/04/2021 Bilateral MG 3D screen mammo imp/cad., [facility]. 05/14/2022 Bilateral MG 3D diag mammo imp w/cad JOLENE, [facility]. 09/05/2023 Bilateral MG 3D screening mammo w/cad, [facility]. Tissue Density: The breasts are heterogeneously dense, which may obscure small masses. Findings: Analyzed By CAD. Bilateral breast implants appear intact. Right breast: There is no suspicious group of microcalcifications or new suspicious mass. Left breast: There is no suspicious group of microcalcifications or new suspicious mass. Overall Assessment: Benign, BI-RAD 2 Management: Screening Mammogram of both breasts in [address] [facility] will attempt to contact patient to return for supplemental views and ultrasound if indicated. Patient should continue monthly self-breast exams. A clinical breast exam by your physician is recommended on an annual basis. This exam should not preclude additional follow-up of suspicious palpable abnormalities. Note on Linda scores and lifetime risk: 1. A Linda score greater than 3% is considered moderate risk. If this is the case, consider specialist referral to assess eligibility for a risk reducing agent. 2. If overall lifetime risk for the development of breast cancer is 20% or higher, the patient may qualify for future screening with alternating mammogram and breast MRI. [facility], , 09/24/2024 11:25 AM. Electronically signed and approved by: Juan Patel DO
== END | disposition home or self-care (01) ==
LOC: RADMAMWWP 09:07
PROVIDERS: ATTEND Family Medicine
DX: Z12.31 Encounter for screening mammogram for malignant neoplasm of breast (principal); R92.333 Mammographic heterogeneous density, bilateral breasts; Z98.82 Breast implant status; Z92.0 Personal history of contraception
CPT/HCPCS: 77063; 77067